=== PATIENT | female | born 1965 | race American Indian/Alaskan Native ===

== ENCOUNTER 2020-03-11 17:26 | Emergency (ER) | payer BC ==
--- NOTE | 2020-03-11 19:10 | XRay Report ---
CHEST 1 VIEW INDICATION: Chest Pain. COMPARISON: None FINDINGS: SUPPORT DEVICES: None. HEART: Within normal limits. LUNGS/PLEURA: No acute air space or interstitial disease. ADDITIONAL FINDINGS: None. IMPRESSION: 1. No acute findings. Signer Name: Jack Person MD Signed: 03/11/2020 7:05 PM Workstation Name: [id number]
[2020-03-11 19:54] LABS: Basophils % (Auto) 0.7 % (0.0-1.8); Eosinophils # (Auto) 0.2 K/mm3 (0.0-0.4); Eosinophils % (Auto) 2.8 % (0.0-4.3); Hematocrit 39.9 % (30.3-42.9); Hemoglobin 12.4 gm/dl (10.1-14.3); Lymphocytes # (Auto) 1.5 K/mm3 (1.2-5.4); Lymphocytes % (Auto) 23.8 % (13.4-35.0); Mean Corpuscular HGB Conc 31 % (30-34); Monocytes # (Auto) 0.7 K/mm3 (0.0-0.8); Monocytes % (Auto) 10.2 % (0.0-7.3); Red Cell Distribution Width 15.9 % (13.2-15.2)
[2020-03-11 19:55] LABS: Mean Corpuscular Volume 68 fl (79-97); Platelet Count 133 K/mm3 (140-440)
[2020-03-11 20:09] LABS: Blood Urea Nitrogen 10 mg/dL (7-17); Calcium 9.9 mg/dL (8.4-10.2); Hemolysis Index 1
[2020-03-11 20:12] LABS: BUN/Creatinine Ratio 20
--- NOTE | 2020-03-12 02:07 | Emergency Department Report ---
ED General Adult HPI - General Chief complaint: Nausea/Vomiting/Diarrhea Stated complaint: WEAK/SICK PUI?: No Time Seen by Provider: 03/12/20 02:01 Source: patient Mode of arrival: Ambulatory Limitations: No Limitations - History of Present Illness Initial comments: Patient is a 54-year-old female that presents emergency room with complaints of feeling sick. Patient complains of cough, headache, chest pain, nausea and vomiting. Patient states her chest pain is a 4 out of 10. Patient states her chest pain is in the bilateral chest. Patient states the chest pain is worse with cough, movement and palpation. Patient states her chest pain is better with rest. Patient states she has had 4 bouts of nausea and vomiting. Patient states that all of her symptoms been going on for 3 days. Patient states her symptoms are worsening. Patient denies fever and chills. Patient denies abdominal pain. Patient denies diarrhea. Patient denies loss of smell. Patient states she was tested for COVID-19 and it was negative. -: Sudden Location: chest Severity scale (0 -10): 4 Quality: aching Consistency: constant Improves with: rest Worsens with: movement, other (Palpation and cough) Associated Symptoms: chest pain, cough, headaches, malaise, nausea/vomiting. denies: confusion, diaphoresis, fever/chills, loss of appetite, rash, seizure, shortness of breath, syncope, weakness Treatments Prior to Arrival: none - Related Data Previous Rx's Medication Instructions Recorded Last Taken Type Azithromycin [Zithromax] 500 mg PO DAILY 5 Days #5 tablet 03/12/20 Unknown Rx Dexamethasone [Taperdex] 1.5 mg PO DAILY 7 Days #1 tab.ds.pk 03/12/20 Unknown Rx Ondansetron [Zofran Odt] 4 mg PO Q6HR PRN #20 tab.rapdis 03/12/20 Unknown Rx Allergies Allergy/AdvReac Type Severity Reaction Status Date / Time No Known Allergies Allergy Unverified 03/11/20 18:41 ED Review of Systems ROS: Stated complaint: WEAK/SICK Other details as noted in HPI Constitutional: denies: chills, fever Eyes: denies: eye pain, eye discharge, vision change ENT: denies: ear pain, throat pain Respiratory: cough, shortness of breath. denies: wheezing Cardiovascular: chest pain. denies: palpitations Endocrine: no symptoms reported Gastrointestinal: denies: abdominal pain, nausea, diarrhea Genitourinary: denies: urgency, dysuria, discharge Musculoskeletal: denies: back pain, joint swelling, arthralgia Skin: denies: rash, lesions Neurological: headache. denies: weakness, paresthesias Psychiatric: denies: anxiety, depression Hematological/Lymphatic: denies: easy bleeding, easy bruising ED Past Medical Hx - Past Medical History Previous Medical History?: Yes Hx Diabetes: Yes - Surgical History Past Surgical History?: Yes Additional Surgical History: fibroidectomy - Family History Family history: no significant - Social History Smoking Status: Never Smoker Substance Use Type: None - Medications Home Medications: Home Medications Medication Instructions Recorded Confirmed Last Taken Type Azithromycin [Zithromax] 500 mg PO DAILY 5 Days #5 tablet 03/12/20 Unknown Rx Dexamethasone [Taperdex] 1.5 mg PO DAILY 7 Days #1 tab.ds.pk 03/12/20 Unknown Rx Ondansetron [Zofran Odt] 4 mg PO Q6HR PRN #20 tab.rapdis 03/12/20 Unknown Rx ED Physical Exam - General Limitations: No Limitations General appearance: alert, in no apparent distress - Head Head exam: Present: atraumatic, normocephalic - Eye Eye exam: Present: normal appearance, PERRL Pupils: Present: normal accommodation - ENT ENT exam: Present: mucous membranes moist, TM's normal bilaterally, other (Bilateral frontal and maxillary sinus tenderness to palpation. Enlarged nasal turbinates noted.) - Neck Neck exam: Present: normal inspection, full ROM. Absent: tenderness, meningismus - Respiratory Respiratory exam: Present: normal lung sounds bilaterally, chest wall tendern ess. Absent: respiratory distress, wheezes, rales, accessory muscle use, decreased breath sounds - Cardiovascular Cardiovascular Exam: Present: regular rate, normal rhythm. Absent: systolic murmur, diastolic murmur, rubs, gallop - GI/Abdominal GI/Abdominal exam: Present: soft, normal bowel sounds - Extremities Exam Extremities exam: Present: normal inspection - Back Exam Back exam: Present: normal inspection - Neurological Exam Neurological exam: Present: alert, oriented X3 - Psychiatric Psychiatric exam: Present: normal affect, normal mood - Skin Skin exam: Present: warm, dry, intact, normal color. Absent: rash ED Course Vital Signs 03/11/20 18:01 Temperature 97.8 F Pulse Rate 97 H Respiratory 18 Rate Blood Pressure 121/85 [Left] O2 Sat by Pulse 98 Oximetry - Reevaluation(s) Reevaluation #1: I discussed all results and clinical findings with patient. I discussed plan of care with patient. Patient agrees with plan of care. Patient is stable for discharge. Patient will be discharged home. Patient given discharge instructions. Patient voiced understanding of discharge instructions. 03/12/20 03:28 ED Medical Decision Making - Lab Data Result diagrams: 03/11/20 18:57 03/11/20 18:57 - EKG Data -: EKG Interpreted by Me EKG shows normal: sinus rhythm, axis, intervals, QRS complexes, ST-T waves Rate: normal - Radiology Data Radiology results: report reviewed, image reviewed interpreted by me: Chest x-ray: No pneumonia, no pneumothorax, no osseous findings, no foreign body, no acute findings. - Medical Decision Making Patient is a 54-year-old female that presents emergency room with multiple complaints. Patient's complaints include chest pain, cough, URI symptoms, nausea, headache, vomiting. On exam, patient found to have sinus tenderness and chest wall tenderness. Palpation of the chest wall reproduces the patient's symptoms.. Patient had a cardiac work-up done. Patient's EKG was negative for abnormal findings. Patient had chest x-ray was negative for acute findings. Patient did not have any signs of pneumonia on chest x-ray. Patient had labs done which were essentially unremarkable except for hyperglycemia. Patient has a history of diabetes. Patient is stable for discharge. Patient given COVID precautions. Patient given upper respiratory precautions. Patient given antibiotics and steroids. - Differential Diagnosis URI, COVID, cough, nausea, gastroenteritis, chest pain Critical care attestation.: If time is entered above; I have spent that time in minutes in the direct care of this critically ill patient, excluding procedure time. ED Disposition Clinical Impression: Chest wall pain, Gastroenteritis Sinusitis Qualifiers: Sinusitis location: frontal Chronicity: acute Recurrence: non-recurrent Q ualified Code(s): J01.10 - Acute frontal sinusitis, unspecified Headache Qualifiers: Headache type: unspecified Headache chronicity pattern: acute headache Intractability: not intractable Qualified Code(s): R51 - Headache Chest pain Qualifiers: Chest pain type: unspecified Qualified Code(s): R07.9 - Chest pain, unspecified URI (upper respiratory infection) Qualifiers: URI type: unspecified viral URI Qualified Code(s): J06.9 - Acute upper respiratory infection, unspecified Nausea & vomiting Qualifiers: Vomiting type: unspecified Vomiting Intractability: non-intractable Qualified Code(s): R11.2 - Nausea with vomiting, unspecified Disposition: DC- TO HOME OR SELFCARE Is pt being admited?: No Does the pt Need Aspirin: No Condition: Stable Instructions: COVID-19, Chest Pain (ED), Sinusitis (ED), Costochondritis (ED), Gastroenteritis (ED), Acute Nausea and Vomiting (ED) Additional Instructions: Patient to follow-up with primary care in 2 to 3 days. Patient to follow-up with public health and health department In 2 to 3 days. Patient to go have COVID testing done. Patient to self quarantine for 14 days. Patient to rest. Patient to increase water. Patient to take Tylenol as needed for pain. Patient to take meds as directed. Patient to return to the ER if condition worsens, changes or new symptoms arise. Prescriptions: Dexamethasone [Taperdex] 1.5 mg PO DAILY 7 Days #1 tab.ds.pk Azithromycin [Zithromax] 500 mg PO DAILY 5 Days #5 tablet Ondansetron [Zofran Odt] 4 mg PO Q6HR PRN #20 tab.rapdis PRN Reason: Nausea And Vomiting Referrals: JOSE LUIS WALKER MD [Primary Care Provider] - 2-3 Days Forms: Work/School Release Form(ED) Time of Disposition: 03:34
[2020-03-12 07:01] VITALS: BP 128/87
== END 2020-03-12 03:51 | disposition home or self-care (01) ==
LOC: ED 17:26
DX: K52.89 Other specified noninfective gastroenteritis and colitis (principal); J01.10 Acute frontal sinusitis, unspecified; J06.9 Acute upper respiratory infection, unspecified; R51 Headache; E11.9 Type 2 diabetes mellitus without complications; Z79.899 Other long term (current) drug therapy
CPT/HCPCS: 36415; 71045; 80048; 84484; 85025; 93005